=== PATIENT | male | born 1945 | race Caucasian/White ===

== ENCOUNTER 2019-12-03 19:17 | Emergency (ER) | payer MEDICARE ==
[2019-12-03 19:29] VITALS: BP 173/84; PULSE 101; RESP 18; TEMP 98.1
--- NOTE | 2019-12-03 20:39 | ED ---
General Adult HPI - General Chief complaint: Urogenital Stated complaint: Frequent Urination Time Seen by Provider: 12/03/19 20:11 Source: patient Mode of arrival: ambulatory Limitations: no limitations - History of Present Illness Initial comments: 74-year-old male presents to the emergency Department with complaints of urinary frequency and retention, onset today. Patient states he has been traveling from the [facility] and required multiple stops along the way in order to void. Patient states he was unable to empty his bladder at any time today. Was able to urinate a significant amount upon arrival in the emergency department. Patient denies abdominal pain, back pain, fever and chills. Reports history of enlarged prostate that has caused him issues in the past. Patient denies any recent rash, cough, shortness of breath, chest pain, nausea, vomiting, diarrhea, constipation, numbness, tingling, dizziness, weakness, h ematuria, dysuria, urinary urgency, urinary frequency, headache, visual changes, or any other complaints. - Related Data Previous Rx's Medication Instructions Recorded Tamsulosin HCl [Flomax] 0.4 mg PO DAILY #7 cap 12/03/19 Allergies Allergy/AdvReac Type Severity Reaction Status Date / Time No Known Allergies Allergy Verified 12/03/19 19:29 Review of Systems ROS Statement: Those systems with pertinent positive or pertinent negative responses have been documented in the HPI. ROS Other: All systems not noted in ROS Statement are negative. Past Medical History Past Medical History: Prostate Disorder History of Any Multi-Drug Resistant Organisms: None Reported Past Surgical History: No Surgical Hx Reported Past Psychological History: No Psychological Hx Reported Smoking Status: Never smoker Past Alcohol Use History: None Reported Past Drug Use History: None Reported General Exam Limitations: no limitations General appearance: alert, in no apparent distress, other (This is a well-d eveloped, well-nourished male in no acute distress. Present in vital signs include temperature 98.1F, Pulse 101, respirations 18, blood pressure 173/84, pulse ox 94% on room air.) Respiratory exam: Present: normal lung sounds bilaterally. Absent: respiratory distress, wheezes, rales, rhonchi, stridor Cardiovascular Exam: Present: regular rate, normal rhythm, normal heart sounds. Absent: systolic murmur, diastolic murmur, rubs, gallop, clicks GI/Abdominal exam: Present: soft, normal bowel sounds. Absent: distended, tenderness, guarding, rebound, rigid exam: Present: other (Upon arrival to the emergency department patient was able to provide a urine sample and emptied 200 mL of dark yellow urine. ) Back exam: Present: normal inspection Neurological exam: Present: alert, oriented X3, CN II-XII intact Psychiatric exam: Present: normal affect, normal mood Skin exam: Present: warm, dry, intact, normal color. Absent: rash Course Vital Signs 12/03/19 19:24 Temperature 98.1 F Pulse Rate 101 H Respiratory 18 Rate Blood Pressure 173/84 O2 Sat by Pulse 94 L Oximetry Medical Decision Making - Medical Decision Making 74-year-old male patient presents to the emergency department today for evaluation of urinary frequency. Patient states that he has been able to urin ate quite frequently over the last several hours. Patient states he does not feel like he is able to empty his bladder. Physical examination was unremarkable. Abdomen soft and nontender. No CVA tenderness. He is afebrile, vital signs. Urinalysis was obtained and was negative for signs of infection. We did perform bladder scan which showed around 600 mL. We did insert a Friedman catheter and obtained approximately 700 mL output. Patient was fitted with a leg bag. He'll be discharged to follow-up with his urologist for further evaluation as soon as possible. He is given prescription for Flomax. Return parameters were discussed in detail. He verbalizes understanding and agrees with this plan. - Lab Data Lab Results 12/03/19 Range/Units 20:46 Urine Color Light Yellow Urine Appearance Clear (Clear) Urine pH 6.0 (5.0-8.0) Ur Specific Shafer 1.014 (1.001-1.035) Urine Protein Negative (Negative) Urine Glucose (UA) Negative (Negative) Urine Ketones Negative (Negative) Urine Blood Negative (Negative) Urine Nitrite Negative (Negative) Urine Bilirubin Negative (Negative) Urine Urobilinogen <2.0 (<2.0) mg/dL Ur Leukocyte Esterase Negative (Negative) Disposition Clinical Impression: Urinary retention Disposition: HOME SELF-CARE Condition: Good Instructions (If sedation given, give patient instructions): Urinary Retention in Men (ED) Additional Instructions: Take medications as directed. Follow-up with your primary care physician for recheck in 1-2 days. Follow-up with urologist as soon as possible. Return to the emergency department immediately for any new, worsening, or concerning symptoms. Prescriptions: Tamsulosin HCl [Flomax] 0.4 mg PO DAILY #7 cap Is patient prescribed a controlled substance at d/c from ED?: No Referrals: Terence Gallo MD [STAFF PHYSICIAN] - 1-2 days Time of Disposition: 22:00
[2019-12-03 20:57] LABS: Appearance,Urine Clear (Clear); Bilirubin,Urine Negative (Negative); Blood,Urine Negative (Negative); Color,Urine Light Yellow; Glucose,Urine (UA) Negative (Negative); Ketones,Urine Negative (Negative); Leukocyte Esterase,Urine Negative (Negative); Nitrite,Urine Negative (Negative); Protein,Urine Negative (Negative); Specific Gravity,Urine 1.014 (1.001-1.035); Urobilinogen,Urine <2.0 mg/dL (<2.0)
[2019-12-03] MEDS ORDERED: TAMSULOSIN 0.4 MG CAP.ER.24H PO STA (22:00)
== END 2019-12-03 22:41 | disposition home or self-care (01) ==
LOC: EC 19:17
DX: R33.9 Retention of urine, unspecified (principal); R35.0 Frequency of micturition; N42.9 Disorder of prostate, unspecified
CPT/HCPCS: 51702; 51798; 81003; 99284